=== PATIENT | female | born 1960 | race Hispanic/Latino ===

== ENCOUNTER → 2024-11-21 | Outpatient (CLI) | payer OTHER, SELFPAY ==
--- NOTE | 2024-11-21 16:59 | HMCIMG ---
MR KNEE RIGHT WO HISTORY: Pain COMPARISON: None TECHNIQUE: MRI of the right knee was performed utilizing multiple pulse sequences in axial, coronal and sagittal planes. Patient was not given contrast through intravenous route. FINDINGS: No abnormal signal intensity is seen of the visualized bony structure. Tiny joint effusion is seen. The anterior cruciate and posterior cruciate ligaments are grossly intact. The medial and lateral collateral ligaments are also intact. Quadriceps tendon and patellar tendon are within normal limits. There is intrasubstance tear involving the medial and lateral menisci. No evidence of Portillo's cyst is seen. IMPRESSION: 1. Tiny joint effusion is seen. Grossly unremarkable MRI study.
== END | disposition home or self-care (01) ==
LOC: RAH 13:46
PROVIDERS: ATTEND Physical Medicine & Rehabilitation
DX: S83.241A Other tear of medial meniscus, current injury, right knee, initial encounter (principal); S83.281A Other tear of lateral meniscus, current injury, right knee, initial encounter; M25.461 Effusion, right knee; X58.XXXA Exposure to other specified factors, initial encounter; Y93.89 Activity, other specified; Y92.89 Other specified places as the place of occurrence of the external cause; Y99.8 Other external cause status
CPT/HCPCS: 73721